=== PATIENT | female | born 1970 | race Caucasian/White ===

== ENCOUNTER → 2016-10-09 | Outpatient (CLI) | payer BC ==
[2016-10-09 13:25] LABS: BASO % 0.3 % (0.0-1.0); EOS # 0.2 K/mm3 (0.0-0.50); EOS % 1.9 % (0.0-3.0); LARGE UNSTAINED CELL # 0.2 K/mm3 (0.0-0.4); LARGE UNSTAINED CELL % 1.9 % (0.0-4.0); LYMPH # 2.1 K/mm3 (1.5-4.5); LYMPH % 17.9 % (24.0-44.0); MEAN CORPUSCULAR HGB CONC 32.9 g/dl (32.0-36.5); MEAN CORPUSCULAR VOLUME 87.9 fl (80.0-96.0); MONO # 0.5 K/mm3 (0.0-0.8); MONO % 3.9 % (0.0-5.0); NEUTROPHILS # 8.7 K/mm3 (1.8-7.7); NEUTROPHILS % 74.1 % (36.0-66.0); PLATELET COUNT, AUTOMATED 252 k/mm3 (150-450); RED CELL DISTRIBUTION WIDTH 13.3 % (11.5-14.5); WHITE BLOOD COUNT 11.7 K/mm3 (4.0-10.0)
== END ==
LOC: M LAB 11:25
PROVIDERS: ATTEND Obstetrics & Gynecology
DX: Z34.82 Encounter for supervision of other normal pregnancy, second trimester (principal)
CPT/HCPCS: 36415; 82950; 85025; 86850; 86901; J2790

== ENCOUNTER → 2016-10-18 | Outpatient (CLI) | payer BC | LOC: M LAB 07:18 | PROVIDERS: ATTEND Obstetrics & Gynecology | DX: Z34.82 Encounter for supervision of other normal pregnancy, second trimester (principal); R73.09 Other abnormal glucose ==

== ENCOUNTER → 2016-12-11 | Outpatient (REF) | payer OTHER, BC | LOC: M LAB REF 12:21 | PROVIDERS: ATTEND Advanced Practice Midwife | DX: Z34.83 Encounter for supervision of other normal pregnancy, third trimester (principal) ==

== ENCOUNTER 2016-12-28 16:44 | Inpatient (IN) | payer BC, OTHER ==
[2016-12-28] VITALS (10 sets, daily range): BP systolic 124–161; BP diastolic 78–96
[~2016-12-28] VITALS: Ht 154.9 cm; Wt 83.0 kg
[2016-12-28] MEDS: LR 1,000 ML IV SCH (03:30)
[~2016-12-28 16:44] MED LIST: PRENCHW PO
[2016-12-28] MEDS ORDERED: LACTATED RINGER'S 1000 ML IV ONE (17:00)
[2016-12-28] MEDS ORDERED: TUMS500C PO (17:05)
[2016-12-28 17:56] LABS: MEAN CORPUSCULAR HGB CONC 33.8 g/dl (32.0-36.5); MEAN CORPUSCULAR VOLUME 85.9 fl (80.0-96.0); RED CELL DISTRIBUTION WIDTH 13.8 % (11.5-14.5); WHITE BLOOD COUNT 10.6 K/mm3 (4.0-10.0)
[2016-12-28] MEDS ORDERED: CALCIUM CARBONATE 500 MG CHEW U/D PO ONE (18:00)
[2016-12-28 18:24] LABS: ALBUMIN 2.5 GM/DL (3.2-5.2); ALBUMIN/GLOBULIN RATIO 0.74 (1.00-1.93); ALKALINE PHOSPHATASE 147 U/L (45-117); ALT/SGPT 10 U/L (12-78); ANION GAP 10 MEQ/L (8-16); AST/SGOT 17 U/L (15-37); BILIRUBIN,TOTAL 0.2 MG/DL (0.2-1.0); BLOOD UREA NITROGEN 12 MG/DL (7-18); CALCIUM LEVEL 8.7 MG/DL (8.5-10.1); CARBON DIOXIDE LEVEL 21 MEQ/L (21-32); CHLORIDE LEVEL 109 MEQ/L (98-107); CREATININE FOR GFR 0.62 MG/DL (0.55-1.02); GLOMERULAR FILTRATION RATE > 60.0 (>58); GLUCOSE, FASTING 79 MG/DL (70-105); POTASSIUM SERUM 4.1 MEQ/L (3.5-5.1); SODIUM LEVEL 140 MEQ/L (136-145); TOTAL PROTEIN 5.9 GM/DL (6.4-8.2); URIC ACID 4.7 MG/DL (2.6-6.0)
[2016-12-28] MEDS ORDERED: LABETALOL HCL 100 MG/20 ML VIAL IV STA (19:38)
[2016-12-28] MEDS ORDERED: LR 1,000 ML IV SCH (19:44)
--- NOTE | 2016-12-28 19:44 | HPEPDOC ---
Obstetrical History & Physical General Date of Admission 12/28/2016 at 0630 Primary Care Physician: Elmo Ovalles DO History of Present Illness Patient is a 46-year-old female who is a at 38 weeks 3 days gestation with an YANCY of 01/08/2017 that was established by her LMP consistent with her first trimester ultrasound. She initiated her care in her first trimester with [facility]. 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 She is scheduled for repeat 01/03/2017. The patient was sent over from the office to labor and delivery with a blood pressure initially of 160/86 and a repeat blood pressure of 140/90. A Preeclamptic profile, a spot urine, CMP, and a CBC obtained upon patient's arrival to labor and delivery. Patient's spot urine is 0.30. Patient reports active movement. Denies vaginal bleeding or leaking of fluid. Denies preeclamptic symptoms including headache, visual changes, epigastric pain. Chief Complaint: Pre-eclamsia, section Information Provided By: Patient Age: 46 : 4 Term: 1 Pre-term: 0 Abortions: 0 Livin Care Care: Good Care Number of Visits: 13 Dating Final EDC: Jan 08, 2017 Final EDC by: LMP LMP: Apr 03, 2016 EGA at Admission: 38.3 Antepartum Course Diagnos(e)s Severe Preeclampsia and polyhydramnios Height (inches): 61 Pre- weight (lbs.): 171 Admission Weight (lbs.): 180 Change in Weight (lbs.): 9 Past Medical History Past Obstetrical History : Type of Delivery: Ceserean section (July 2002 at 39 weeks gestation) Sex of : Male (6 lbs. 12 oz.) Complications: No PROMOTIONS DIRECTOR History: Spontaneous (2013 and 2015) Past Medical History Medical History Patient has cerebral palsy with spastic ataxic dysplasia. Surgical History: section, Dilatation and Curettage Family History Significant Family History: Cancer (mother has a history of breast cancer), Heart disease, Hypertension, Other (osteoporosis) Social History Social history Patient is . No history of abuse either physical emotional or sexual. Patient denies being a smoker, uses alcohol, denies drug use. Denies any history of STDs. Marital Status: Family situation: Spouse/partner home Psychosocial History: No pertinent psych hx * Smoker: non-smoker Alcohol: Denies Drugs: denies Abuse Violence Screening Have you been hit/kicked/slapp: No Have you been sexually assault: No Imunizations Tdap status: current Influenza Status: current Allergies Coded Allergies: No Known Allergies (Unverified , 02/17/14) Medications Scheduled Multivitamins/ ( 19) 1 Chw Chw 1 CHW PO DAILY Scheduled PRN Calcium Carbonate (Tums) 500 Mg Chw 500 MG PO PRN PRN PRN EPIGASTRIC DISCOMFORT Physical Examination Physical Examination GENERAL: Alert and oriented times three. BREAST: . ABDOMEN: Gravid and non-tender to touch.. HEART RATE: Regular rate and rhythm. LUNGS: Clear to auscultation (CTA). EXTREMITIES: 4+ pitting edema bilateral lower extremities. No clonus. Deep tendon reflexes (DTRs) + [3] in bilateral upper extremities. Vital Signs/I&O Vital Signs Label Value Date Time Blood Pressure Assessment 148/93 (111) 12/28/16 1746 Source Automatic Cuff (NIBP) Blood Pressure Assessment 153/96 (115) 12/28/16 1805 Source Automatic Cuff (NIBP) Blood Pressure Assessment 161/95 (117) 12/28/16 1841 Source Automatic Cuff (NIBP) Vital Signs Date Time Temp Pulse Resp B/P Pulse Ox O2 Delivery O2 Flow Rate FiO2 12/28/16 17:15 99.4 83 18 124/78 98 Room Air Laboratory Data 24H LABS Laboratory Tests 2 12/28/16 17:20: Urine Random Creatinine 159.0, Urine Random Total Protein 49.2H 12/28/16 17:42: Blood Urea Nitrogen 12, Creatinine 0.62, Sodium Level 140, Potassium Level 4.1, Chloride Level 109H, Carbon Dioxide Level 21, Calcium Level 8.7, Aspartate Amino Transf (AST/SGOT) 17, Alanine Aminotransferase (ALT/SGPT) 10L, Lactate Dehydrogenase 216, Alkaline Phosphatase 147H, Total Bilirubin 0.2, Uric Acid 4.7 , Total Protein 5.9L, Albumin 2.5L, Albumin/Globulin Ratio 0.74L, Anion Gap 10, Glomerular Filtration Rate > 60.0 CBC/BMP Laboratory Tests 12/28/16 17:42 Calcium Level 8.7, Aspartate Amino Transf (AST/SGOT) 17, Alanine Aminotransferase (ALT/SGPT) 10 L, Lactate Dehydrogenase 216, Alkaline Phosphatase 147 H, Total Bilirubin 0.2, Uric Acid 4.7, Total Protein 5.9 L, Albumin 2.5 L, Red Blood Count 4.40, Mean Corpuscular Volume 85.9, Mean Corpuscular Hemoglobin 29.0, Mean Corpuscular Hemoglobin Concent 33.8, Red Cell Distribution Width 13.8 Urine Culture: No Growth Pertinent Laboratoy Data Blood Type: O- RBC Antibody Screen: Negative HIV: Negative Hepatitis B: Negative Rapid Plasma Reagin: Nonreactive Rubella: Immune Chlamydia/Gonorrhea: Negative Group B Streptococcus: Negative Quad Screen Test: Negative ([place] testing done 06/29/2016 with a result of low risk.) Glucose Tolerance Test: 136 Anatomy Ultrasound Ultrasound Date: Dec 26, 2016 Placenta Location: Anterior (resident patient is vertex, RITA is 24.33) Normal Anatomy: Yes Placenta Previa: No Estimated Weight (grams): 3219 Assessment Heart Rate (FHR): 130 Variability: Moderate Accelerations: Positive Decelerations: None Tocometer Contractions: Yes Frequency: irregular Strength: other (difficult to palpate due to spasticity of patient's abdomen) Multi-drug resistant Organism: No history of MDRO Assessment/Plan Assessment IUP at 38 weeks 3 days Cerebral palsy with spastic and ataxic diplegia Severe Preeclampsia Prior section Polyhydramnios Category 1 heart rate tracing Plan Admit to labor and delivery. IV per order and labs per order. Patient to have nothing by mouth. Out of bed for bathroom privileges only. Anesthesia consulted. Dr. Ovalles aware of labs and would like to progress to a section due to patient's new-onset of severe preeclampsia and her history of a section with desire for a repeat elective . Diagnosis has been reviewed with patient along with risks/benefits of expectant management versus delivery. Patient does desire a repeat . We will progressed to a section. RONNI LEON CNM Dec 28, 2016 19:30 Elmo Ovalles DO Dec 28, 2016 23:17
[2016-12-28] MEDS ORDERED: BICITRA 30ML SOLN UDC PO ONE (20:00)
--- NOTE | 2016-12-28 23:10 | IPNPDOC ---
Obstetrical Progress Note Date of Service The patient was seen on 12/28/16 at 19:40. Progress Note SUBJECTIVE: Patient has no complaints. Denies any symptoms of preeclampsia. OBJECTIVE: VS at 1841: BP 161/95, HR 84; VS at 1935: 160/96; VS at 1955: 131/ 84. FHR: 125, moderate variability, positive accelerations, no decelerations. Contractions: 2-6 minutes. ASSESSMENT: IUP at 38.3 weeks gestation, severe preeclampsia, prior , polyhydramnios PLAN: Reviewed with Dr. Ovalles. Patient to receive 20 mg of IV labetalol. Anticipate BP's to decrease to acceptable ranges. Reviewed medication with patient. RONNI LEON CNM Dec 28, 2016 23:10
[2016-12-28] MEDS ORDERED: RHOGAM 300 MCG (1500 IU) INJ (J2790) IM SCH (23:30)
[2016-12-28] MEDS ORDERED: NORCO, ANEXSIA 5/325MG TABLET (HYDROcodone/ACETAMINOPHEN) PO PRN (23:30)
[2016-12-28] MEDS ORDERED: MOM 30ML SUSPENSION UDC PO PRN (23:30)
[2016-12-28] MEDS ORDERED: ONDANSETRON 4MG/2ML VIAL (J2405) IV PRN ×2 (23:30→23:51)
[2016-12-28] MEDS ORDERED: MEASLES,MUMPS,RUBELLA VACCINE INJ (MMR-II) (90707) SC SCH (23:30)
[2016-12-28] MEDS ORDERED: NALBUPHINE HCL 10 MG/ML AMP (J2300) IV PRN (23:51)
[2016-12-28] MEDS ORDERED: METOCLOPRAMIDE INJ 10MG/2ML VIAL (J2765) IV PRN (23:51)
[2016-12-28] MEDS ORDERED: NALOXONE INJ 0.4 MG/1 ML VIAL (J2310) IV PRN ×2 (23:51)
[2016-12-29] VITALS (14 sets, daily range): BP systolic 109–150; BP diastolic 59–89
[2016-12-29] MEDS ORDERED: ONDANSETRON 4MG/2ML VIAL (J2405) As Ordered ONE (00:21)
[2016-12-29] MEDS ORDERED: ePHEDrine SULFATE 25 MG/5 ML(5MG/ML) SYRINGE As Ordered ONE (00:21)
[2016-12-29] MEDS ORDERED: OXYTOCIN INJ 10 UNITS/ML VIAL (J2590) As Ordered ONE (00:21)
[2016-12-29] MEDS ORDERED: KETOROLAC 60 MG/2 ML VIAL (J1885) As Ordered ONE (00:21)
[2016-12-29] MEDS ORDERED: PHENYLephrine HCL 500 MCG/5 ML (100MCG/ML) SYRINGE (J2370) As Ordered ONE (00:21)
[2016-12-29] MEDS ORDERED: MORPHINE PRES-FREE INJ 10 MG/10 ML VIAL (J2274) As Ordered ONE (00:21)
[2016-12-29] MEDS ORDERED: NALBUPHINE HCL 10 MG/ML AMP (J2300) IV PRN (00:45)
[2016-12-29] MEDS ORDERED: fentaNYL 100 MCG/2 ML INJECTION (J3010) IV PRN (00:45)
[2016-12-29] MEDS ORDERED: MEPERIDINE INJ 25 MG/ML VIAL (J2175) IV PRN (00:45)
[2016-12-29] MEDS ORDERED: PERCOCET 5MG/325MG TAB PO PRN (00:45)
[2016-12-29 02:08] LABS: CORD GAS ABE V -3.4; CORD GAS O2 SAT V 60.9 %; CORD GAS PCO2 V 40.6 mmHg; CORD GAS PH V 7.351 UNITS; CORD GAS PO2 V 26.6 mmHg; CORD GAS SBC V 20.7 MEQ/L; CORD GAS TCO2 V 23.2 MEQ/L
[2016-12-29 02:10] LABS: CORD GAS ABE A -5.4; CORD GAS HCO3 A 23.5 MEQ/L; CORD GAS O2 SAT A 28.1 %; CORD GAS PCO2 A 58.4 mmHg; CORD GAS PH A 7.223 UNITS; CORD GAS PO2 A 20.7 mmHg; CORD GAS SBC A 18.3 MEQ/L; CORD GAS TCO2 A 25.3 MEQ/L
[2016-12-29 07:40] LABS: MEAN CORPUSCULAR HEMOGLOBIN 29.1 pg (27.0-33.0); MEAN CORPUSCULAR HGB CONC 33.5 g/dl (32.0-36.5); RED CELL DISTRIBUTION WIDTH 13.7 % (11.5-14.5); WHITE BLOOD COUNT 14.6 K/mm3 (4.0-10.0)
[2016-12-29] MEDS: DOCUSATE SODIUM 100 MG CAP PO SCH ×2 (08:31→20:36)
[2016-12-29] MEDS: PRENATAL VITAMIN TAB PO SCH (08:32)
[2016-12-29] MEDS: IBUPROFEN 800 MG TAB PO SCH ×2 (08:32→16:19)
--- NOTE | 2016-12-29 09:22 | RO ---
DATE OF PROCEDURE: 12/29/2016 Letitia is a 46-year-old female 4, para 1-0-2-1 with a history of prior section and cerebral palsy with dysplastic features. She presented to the office with an elevated blood pressure in the 160 to 100 range. She was then sent to labor and delivery for observation. Upon evaluation, she was found to be pre-eclamptic. The patient was originally scheduled for prior repeat section and bilateral tubal ligation. At this point, a decision was made to proceed with the repeat section and bilateral tubal ligation. PREOPERATIVE DIAGNOSES: 1. Intrauterine at 38-3/7 weeks gestation. 2. Preeclampsia. 3. History of prior section. POSTPROCEDURE DIAGNOSES: 1. Intrauterine at 38-3/7 weeks gestation. 2. Preeclampsia. 3. History of prior section. 4. Dense pelvic and bladder adhesion. 5. Large lower uterine segment window. PROCEDURE: 1. Repeat section. 2. Revision of old scar. 3. Bilateral tubal ligation. 4. Extensive lysis of adhesion. ANESTHESIA: Spinal. SURGEON: Dr. Ovalles POKER MACHINE ATTENDANT: Nori Howell COMPLICATIONS: None. ESTIMATED BLOOD LOSS: 450 mL. FINDINGS: Live female in occiput transverse position with a nuchal cord times two, large lower uterine segment found. scores 8 and 9. weight 6 pounds 8 ounces. Normal-appearing tubes and ovaries. DESCRIPTION OF PROCEDURE: After obtaining informed consent, the patient was taken to the operating room where spinal anesthetic was found to be adequate. She was then draped prepped usual sterile fashion in the supine position. At this point, a Alexandra catheter was placed in the bladder for drainage. The abdomen was prepped and draped. An elliptical incision was made over the old scar. The scar was removed. The incision was then carried to the fascia. Fascia was incised in midline fashion and carried through laterally. Superior aspect of the fascia then grasped with two Keisha clamps, tented off and dissected off the rectus muscles sharply. Upon entering the peritoneal cavity, the omentum, as well as the bladder was found to be adherent to the lower uterine segment, as well as the abdominal wall. Careful dissection was then done with Metzenbaum and Bovie. The adhesions were taken down. After taking the adhesions down and creating a bladder flap, we were then able to place a Mobius skin retractor. A low-transverse uterine incision was made. It was found to be one to two cell layer thick, copious amount of clear amniotic fluid was noted. was delivered in an atraumatic fashion. The nuchal cords were reduced. Cord doubly clamped and cut and infant was handed over to the waiting warmer. Cord blood and cord gas was sent. Placenta removed manually. Uterus cleared of all clot and debris, and the uterine incision was then repaired in two separate layers of #0 Vicryl sutures. The fallopian tubes were identified and Filshie clip was applied approximately 2-3 cm away from the cornual area of each tube. Pelvis copiously irrigated with normal saline and suctioned out. We then freed off the omentum off the peritoneum and the peritoneal cavity was then closed using #2-0 Vicryl in a running fashion. Fascia closed in two separate segment of #0 Vicryl sutures, and the skin was reapproximated in subcuticular fashion using #3-0 Vicryl in a Amarjit. Steri-Strips placed. The patient tolerated procedure well. She was then transferred to recovery room in stable condition.
[2016-12-29 10:12] LABS: ALT/SGPT 9 U/L (12-78); AST/SGOT 21 U/L (15-37); BILIRUBIN,TOTAL 0.4 MG/DL (0.2-1.0); CREATININE FOR GFR 0.62 MG/DL (0.55-1.02); GLOMERULAR FILTRATION RATE > 60.0 (>58)
[2016-12-29] MEDS: LR 1,000 ML IV SCH ×2 (10:47→18:06)
[2016-12-29] MEDS: NORCO, ANEXSIA 5/325MG TABLET (HYDROcodone/ACETAMINOPHEN) PO PRN ×2 (17:23→21:40)
[2016-12-29] MEDS ORDERED: PERCOCET PO (19:54)
[2016-12-30] MEDS: IBUPROFEN 800 MG TAB PO SCH ×3 (00:38→16:15)
[2016-12-30] MEDS: LR 1,000 ML IV SCH ×2 (01:32→07:45)
[2016-12-30] MEDS: NORCO, ANEXSIA 5/325MG TABLET (HYDROcodone/ACETAMINOPHEN) PO PRN ×5 (01:33→21:09)
[2016-12-30 02:00] VITALS: BP 138/86
[2016-12-30 05:54] VITALS: BP 112/64
[2016-12-30] MEDS: PRENATAL VITAMIN TAB PO SCH (07:45)
[2016-12-30] MEDS: DOCUSATE SODIUM 100 MG CAP PO SCH ×2 (07:45→21:02)
[2016-12-30 10:00] VITALS: BP 135/88
[2016-12-30 14:36] VITALS: BP 144/78
[2016-12-30 18:00] VITALS: BP 125/75
[2016-12-30 22:14] VITALS: BP 134/72
[2016-12-31] MEDS: IBUPROFEN 800 MG TAB PO SCH ×2 (00:47→07:30)
[2016-12-31] MEDS: NORCO, ANEXSIA 5/325MG TABLET (HYDROcodone/ACETAMINOPHEN) PO PRN ×2 (02:14→06:48)
[2016-12-31 05:39] VITALS: BP 132/76
[2016-12-31] MEDS: DOCUSATE SODIUM 100 MG CAP PO SCH (07:30)
[2016-12-31] MEDS: PRENATAL VITAMIN TAB PO SCH (07:30)
[2016-12-31] MEDS ORDERED: IBUP-1114 PO (12:07)
[2016-12-31] MEDS ORDERED: NORC5TAB PO (12:07)
[2016-12-31] MEDS ORDERED: PREN29TA4 PO (12:07)
--- NOTE | 2016-12-31 12:26 | DSES ---
DATE OF ADMISSION: 12/28/2016 DATE OF DISCHARGE: DISCHARGE DIAGNOSIS: Postoperative day #2 repeat section and bilateral tubal ligation. SURGEON: Dr. Elmo Ovalles. HISTORY: Letitia is of 46-year-old, 3, para 1-0-2-1, who underwent repeat section with bilateral tubal ligation due to severe preeclampsia, oligohydramnios, cerebral palsy with spastic and ataxic plegia and prior section. Her surgery was uncomplicated; however, her postoperative course was complicated by poor urinary output. The Alexandra was left in for an extended period of time and IV fluids were maintained as well. Once the Alexandra was removed, she was able to void independently and has been voiding without problems and tolerating by mouth liquids fine. Her pain is well controlled with by mouth medications. She is breast-feeding reasonably well. She has no complaints. She is voiding without difficulty, passing flatus and tolerating a regular diet. She has been out of bed for self care, feliciano care and infant care. is very supportive and helpful. Vital signs are stable. Temperature 98.2, pulse 81, respirations 18, blood pressure (BP) is 132/76. Her preoperative CBC with a hemoglobin of 12.8, hematocrit 37.8 and platelets 225. Postoperative CBC with a hemoglobin 11, hematocrit 32.8 and platelets 195. Her breasts are soft and nontender. Nipples are intact. There is no redness. Abdomen is fundus firm at umbilicus (U), nontender. Incision is dry and intact. There is no drainage. No redness. No warmth and no edema. Her perineum is intact with lochia rubra scant. Bilateral lower extremities with +3 pitting edema. She is diuresing well. She does desire discharge today. PLAN: Discharge the patient home. Prescriptions have been E-prescribed by Dr. Ovalles to her pharmacy. I did review discharge instructions that include a 2-week incision check at [facility] and a 6-week check at [facility], breast care, incision care, feliciano care, pelvic rest, activity and lifting restrictions, signs and symptoms of mastitis, delayed hemorrhage, and worsening signs of preeclampsia. I did review access to care. All of the patient's questions have been answered and she does desire discharge.
== END 2016-12-31 13:05 | disposition home or self-care (01) | DRG 540 ==
LOC: M LDO 16:44 → M LDI 18:40 → M OBS 12-29 02:18
PROVIDERS: ADMIT Obstetrics & Gynecology; ATTEND Obstetrics & Gynecology
PROC: 10D00Z1 Extraction of Products of Conception, Low, Open Approach (ICD-10-PCS; principal; 2016-12-29)
PROC: 0UL70DZ Occlusion of Bilateral Fallopian Tubes with Intraluminal Device, Open Approach (ICD-10-PCS; 2016-12-29)
DX: O14.14 Severe pre-eclampsia complicating childbirth (principal); O99.354 Diseases of the nervous system complicating childbirth; O40.3XX0 Polyhydramnios, third trimester, not applicable or unspecified; O34.211 Maternal care for low transverse scar from previous cesarean delivery; Z3A.38 38 weeks gestation of pregnancy; G80.1 Spastic diplegic cerebral palsy; G80.4 Ataxic cerebral palsy; Z37.0 Single live birth; Z30.2 Encounter for sterilization

== ENCOUNTER → 2017-07-31 | Outpatient (CLI) | payer BC ==
[~2017-07-31] MED LIST changes: +IBUP-1114 PO; +NORC1TAB4 PO; +PERCOCET PO; +PREN29TA4 PO; +TUMS500C PO
--- NOTE | 2017-08-08 14:40 | REPMRS ---
Patient History The patient states she had a clinical breast exam in 06/2017. Patient had first child at age 30. Family history of breast cancer in mother at age 53. Digital Woman Screen Mammo: July 31, 2017 - Exam #: [id number] Bilateral CC and MLO view(s) were taken. Technologist: Ronda Jaeger, Technologist Prior study comparison: 2012, digital bilateral screening mammo, performed at [facility]. FINDINGS: The breast tissue is heterogeneously dense. This may lower the sensitivity of mammography. There has been no change in the appearance of the mammogram from the prior studies. There is a moderate amount of residual fibroglandular tissue which is fairly symmetric. There is no interval development of dominant mass, areas of architectural distortion, or clustered microcalcification typical of malignancy. ASSESSMENT: BI-RADS/ACR category 1 mammogram. Negative. Recommendation Routine screening mammogram in 1 year. This patient's Lifetime Breast Cancer RIsk is estimated at 25.1%. Given this increased risk and the heterogeneously dense breasts, I would recommend MRI of the breasts. (for women over age 40). This mammogram was interpreted with the aid of an FDA-approved computer-aided dectection system. Electronically Signed By: Osvaldo Saeed MD 08/08/17 5247
== END ==
LOC: M WHC 07:17
PROVIDERS: ATTEND Advanced Practice Midwife
DX: Z12.31 Encounter for screening mammogram for malignant neoplasm of breast (principal)

== ENCOUNTER → 2017-07-31 | Outpatient (CLI) | payer BC | LOC: M WHC 06:42 | PROVIDERS: ATTEND Advanced Practice Midwife | DX: Z12.31 Encounter for screening mammogram for malignant neoplasm of breast (principal) ==

== ENCOUNTER → 2018-07-16 | Outpatient (CLI) | payer BC | LOC: M WHC 06:25 | DX: Z12.31 Encounter for screening mammogram for malignant neoplasm of breast (principal) | CPT/HCPCS: 77067 ==

== ENCOUNTER → 2019-02-17 | Outpatient (CLI) | payer BC ==
[~2019-02-17] MED LIST changes: -NORC1TAB4 PO; +NORC1TAB7 PO; +PROHANCE 279.3MG/ML 15ML VIAL (A9576) As Ordered ONE; +PROHANCE 279.3MG/ML 5ML VIAL (A9576) As Ordered ONE
--- NOTE | 2019-02-18 07:57 | REP ---
Bilateral breast MRI study without and with IV gadolinium: History: Genetic susceptibility to malignant neoplasm of the breast. Tyrer Cuzick risk assessment greater than 20%. Comparison mammography July 16, 2018. Technique: 3 Allie MRI imaging was performed with a dedicated breast coil. Axial, coronal, and sagittal T1 and T2-weighted scans were obtained with and without fat saturation in the usual fashion. The study includes dynamically acquired post gadolinium enhanced imaging subtraction imaging. Maximal intensity projection and multiplanar re-formation imaging is included as well. The study was interpreted with the aid of [employer] ([place]man)D, an FDA approved computer-aided detection (CAD) software program, on a dedicated breast MRI work station. The gadolinium enhancement dose is 16 ml of intravenous ProHance. Findings: There is no evidence of axillary lymphadenopathy or significant breast cystic change. Scattered fibroglandular elements are seen. There is a minimal pattern of background parenchymal enhancement. High-resolution pre and postcontrast enhanced T1 and T2-weighted scans show no suspicious morphologic abnormality in either breast. Dynamically acquired sequential post gadolinium enhanced images show no suspicious focus of enhancement and/or washout on either side. Subtraction images are unremarkable. Impression: BIRADS category one negative bilateral breast MRI study. Repeat breast MRI scanning recommended 1 year. Electronically Signed by Shamir Saeed MD 02/18/2019 07:47 A
== END ==
LOC: M RAD 12:36
PROVIDERS: ATTEND Obstetrics & Gynecology
DX: Z13.79 Encounter for other screening for genetic and chromosomal anomalies (principal); Z12.31 Encounter for screening mammogram for malignant neoplasm of breast
CPT/HCPCS: A9576; C8908

== ENCOUNTER → 2019-08-07 | Outpatient (CLI) | payer BC ==
[~2019-08-07] MED LIST changes: -PROHANCE 279.3MG/ML 15ML VIAL (A9576) As Ordered ONE; -PROHANCE 279.3MG/ML 5ML VIAL (A9576) As Ordered ONE
--- NOTE | 2019-08-07 10:40 | REPMRS ---
Patient History The patient states she had a clinical breast exam in 07/2019. Patient had first child at age 30. Family history of breast cancer at age 53 in mother. No Hormone Replacement Therapy 3D TOMOSYNTHESIS WAS PERFORMED. Digital Woman Screen Mammo: August 07, 2019 - Exam #: [id number] Bilateral CC and MLO view(s) were taken. Technologist: Ronda Jaeger, Technologist Prior study comparison: July 16, 2018, bilateral digital woman screen mammo performed at [facility]. July 31, 2017, digital woman screen mammo performed at [facility]. FINDINGS: The breast tissue is heterogeneously dense. This may lower the sensitivity of mammography. There has been no change in the appearance of the mammogram from the prior studies. There is a moderate amount of residual fibroglandular tissue which is fairly symmetric. There is no interval development of dominant mass, areas of architectural distortion, or clustered microcalcification typical of malignancy. Assessment: BI-RADS/ACR category 1 mammogram. Negative Mammogram. Recommendation Routine screening mammogram in 1 year (for women over age 40). This mammogram was interpreted with the aid of an FDA-approved computer-aided dectection system. THE LIFETIME RISK OF BREAST CANCER IS 24.4%, THEREFORE SUPPLEMENTAL SCREENING MRI OF THE BREASTS IS RECOMMENDED IN 6 MONTHS. Electronically Signed By: Ayo Britton MD 08/07/19 2213
== END ==
LOC: M WHC 09:40
PROVIDERS: ATTEND Nurse Practitioner Women's Health
DX: Z12.31 Encounter for screening mammogram for malignant neoplasm of breast (principal)

== ENCOUNTER → 2020-08-03 | Outpatient (CLI) | payer BC ==
--- NOTE | 2020-08-03 13:23 | REPMRS ---
Patient History The patient states she had a clinical breast exam in July 2020.Family history of breast cancer at age 53 in mother. No Hormone Replacement Therapy 3D TOMOSYNTHESIS WAS PERFORMED. Volpara breast density b. Digital Woman Screen Mammo: August 03, 2020 - Exam #: [id number] Bilateral CC and MLO view(s) were taken. Technologist: Magaly Stauffer, Technologist Prior study comparison: August 07, 2019, bilateral digital woman screen mammo performed at [facility]. July 16, 2018, bilateral digital woman screen mammo performed at [facility]. FINDINGS: There are scattered fibroglandular densities. There has been no change in the appearance of the mammogram from the prior studies. There is a mild amount of residual fibroglandular tissue which is fairly symmetric. There is no interval development of dominant mass, architectural distortion, or clustered microcalcification suggestive of malignancy. Assessment: BI-RADS/ACR category 1 mammogram. Negative Mammogram. Recommendation Routine screening mammogram in 1 year (for women over age 40). This mammogram was interpreted with the aid of an FDA-approved computer-aided dectection system. THE LIFETIME RISK OF BREAST CANCER IS 24.0%, THEREFORE SUPPLEMENTAL SCREENING MRI OF THE BREASTS IS RECOMMENDED IN 6 MONTHS. Electronically Signed By: Ayo Britton MD 08/03/20 [id number]
--- NOTE | 2020-08-05 12:58 | DEXA ---
AP SPINE L1 - L4 1.248 0.4 0.9 LT FEMUR TOTAL 0.957 -0.4 0.1 LT NECK 1.035 0.0 0.8 RT FEMUR TOTAL 1.057 0.4 0.9 RT NECK 1.494 3.3 4.1 TOTAL BODY TOTAL OTHER COMMENTS: Normal bone densitometry of the spine and hips. FOLLOW-UP: Recommendation for the next bone density exam: 5 years. GAUDENCIO
== END ==
LOC: M WHC 10:25
PROVIDERS: ATTEND Advanced Practice Midwife
DX: Z12.31 Encounter for screening mammogram for malignant neoplasm of breast (principal); Z13.820 Encounter for screening for osteoporosis

== ENCOUNTER → 2021-08-31 | Outpatient (CLI) | payer BC ==
--- NOTE | 2021-08-31 08:45 | REP ---
INDICATION: SCREEN MAMMO. COMPARISON: 08/03/2020 as well as other prior exams. TECHNIQUE: MLO and CC views bilateral breasts with tomosynthesis. FINDINGS: Moderate heterogeneous fibroglandular tissue is present. Architectural distortion is suspected medially in the right breast, with possibly 2 separate areas of architectural distortion, 1 more superiorly and 1 more inferiorly. Left breast is unchanged in appearance with no new mass or architectural distortion. No clustered microcalcifications are seen. The Volpara volumetric breast density pattern is B. IMPRESSION: BIRADS/ACR category 0, incomplete. There are 2 areas of possible architectural distortion in the medial aspect of the right breast. Recommend spot compression views to further evaluate. Ultrasound may also be necessary. This patient's Tyrer-Cuzick lifetime breast cancer risk assessment score is 23.6%. This mammogram was interpreted with the aid of an FDA-approved computer-aided detection system. The patient states she had a clinical breast exam in August 2021. The patient letter being requested is M0. RECOMMENDATION: Recommend spot compression views right breast with possible ultrasound. Yearly supplemental screening MRI of the breasts is recommended for patients with an elevated lifetime risk of breast cancer of 20% or greater, in addition to annual screening mammography, staggered every 6 months. <Electronically signed by Ayo Britton > 08/31/21 [id number]
== END ==
LOC: M WHC 07:02
PROVIDERS: ATTEND Obstetrics & Gynecology
DX: R92.2 Inconclusive mammogram (principal)

== ENCOUNTER → 2021-09-14 | Outpatient (CLI) | payer BC ==
--- NOTE | 2021-09-14 14:27 | REP ---
INDICATION: RIGHT BREAST ADD VIEWS. COMPARISON: Screening, 07/26/2018 and 08/31/2021. TECHNIQUE: 2D and 3D cc and MLO views of the right breast were obtained. FINDINGS: The areas of apparent architectural distortion, seen in the right breast on the recent screening mammogram, are shown to be normal breast tissue at additional view mammography. IMPRESSION: BIRADS/ACR : Category 1: Negative. The patient letter being requested is M1. RECOMMENDATION: Repeat screening mammography recommended 1 year (for women over 40). <Electronically signed by Jeremy Rain > 09/14/21 [id number]
== END ==
LOC: M WHC 13:40
PROVIDERS: ATTEND Advanced Practice Midwife
DX: Z12.31 Encounter for screening mammogram for malignant neoplasm of breast (principal)
CPT/HCPCS: 77065; G0279

== ENCOUNTER 2022-02-21 18:32 | Emergency (ER) | payer BC ==
[~2022-02-21] VITALS: Ht 152.4 cm; Wt 81.8 kg
[2022-02-21] MEDS ORDERED: BENZ200C70 PO (22:10)
[2022-02-21] MEDS ORDERED: PROAAER10 INH (22:13)
[2022-02-21] MEDS ORDERED: AZIT-12 PO (23:26)
[2022-02-21 23:36] VITALS: BP 114/78
== END 2022-02-21 23:40 | disposition home or self-care (01) ==
LOC: M ED 18:32
DX: J20.9 Acute bronchitis, unspecified (principal); G80.9 Cerebral palsy, unspecified

== ENCOUNTER → 2022-09-04 | Outpatient (CLI) | payer BC ==
[~2022-09-04] MED LIST changes: +AZIT-12 PO; +BENZ200C70 PO; +PROAAER10 INH
== END ==
LOC: M WHC 09:29
PROVIDERS: ATTEND Obstetrics & Gynecology
DX: Z12.31 Encounter for screening mammogram for malignant neoplasm of breast (principal); Z80.3 Family history of malignant neoplasm of breast

== ENCOUNTER → 2023-09-14 | Outpatient (CLI) | payer BC | LOC: M WHC 07:50 | PROVIDERS: ATTEND Obstetrics & Gynecology | DX: Z12.31 Encounter for screening mammogram for malignant neoplasm of breast (principal); N85.2 Hypertrophy of uterus ==

== ENCOUNTER 2024-02-25 09:45 | Day surgery (SDC) | payer BC ==
[~2024-02-25] VITALS: Ht 152.4 cm; Wt 90.3 kg
[~2024-02-25 09:45] MED LIST changes: +ATOR40TA75 PO; +HYDR-3490 PO; +LR 1,000 ML IV SCH; +MIDAZOLAM INJ 2MG/2ML VIAL As Ordered ONE; +fentaNYL 100 MCG/2 ML INJECTION As Ordered ONE
[2024-02-25] MEDS: TETRACAINE 0.5% OPHTH SOLN 4ML OD SCH (10:34)
[2024-02-25] MEDS: FLURBIPROFEN 0.03% OPHTH SOLN 2.5 ML OD SCH (10:35)
[2024-02-25] MEDS: ATROPINE SULFATE 1% OPHTH SOLN 2ML BTL OD SCH (10:35)
[2024-02-25] MEDS: PHENYLEPHRINE 2.5% OPHTH SOL 2ML OD SCH (10:35)
[2024-02-25] MEDS: LIDOCAINE 1% SDV 5ML VIAL As Ordered ONE (11:56)
[2024-02-25] MEDS: TRYPAN BLUE 0.06 % 2.25 ML OPHTH SYR (VISIONBLUE) As Ordered ONE (12:01)
[2024-02-25] MEDS: CEFUROXIME 1MG/0.1ML INTRACAMERAL INJ As Ordered ONE (12:01)
[2024-02-25 12:18] VITALS: BP 132/88; TEMP 97.1; O2SAT 99
== END 2024-02-25 12:44 | disposition home or self-care (01) ==
LOC: M SDC 09:45
PROVIDERS: ATTEND Ophthalmology
DX: H25.21 Age-related cataract, morgagnian type, right eye (principal); E78.00 Pure hypercholesterolemia, unspecified; R60.0 Localized edema; G80.9 Cerebral palsy, unspecified; Z98.42 Cataract extraction status, left eye; Z79.899 Other long term (current) drug therapy
CPT/HCPCS: 66982; J0697; J2250; J3010; V2632

== ENCOUNTER → 2024-09-16 | Outpatient (CLI) | payer BC ==
[~2024-09-16] MED LIST changes: -LR 1,000 ML IV SCH; -MIDAZOLAM INJ 2MG/2ML VIAL As Ordered ONE; -fentaNYL 100 MCG/2 ML INJECTION As Ordered ONE
== END ==
LOC: M WHC 10:46
PROVIDERS: ATTEND Obstetrics & Gynecology
DX: Z12.31 Encounter for screening mammogram for malignant neoplasm of breast (principal); R92.323 Mammographic fibroglandular density, bilateral breasts

== ENCOUNTER → 2025-09-22 | Outpatient (CLI) | payer BC | LOC: M WHC 10:01 | PROVIDERS: ATTEND Obstetrics & Gynecology | DX: Z12.31 Encounter for screening mammogram for malignant neoplasm of breast (principal) ==